=== PATIENT | male | born 1950 | race Caucasian/White ===

== ENCOUNTER 2021-03-29 11:22 | Emergency (ER) | payer MEDICARE, BC ==
[~2021-03-29] VITALS: Ht 172.7 cm; Wt 94.0 kg
[2021-03-29 11:24] VITALS: BP 135/92
[2021-03-29] MEDS ORDERED: ELIQ5TAB PO (11:32)
[2021-03-29] MEDS ORDERED: ASPI81CH33 PO (11:32)
[2021-03-29] MEDS ORDERED: OSTETAB2 PO (11:32)
[2021-03-29] MEDS ORDERED: SIMV20TA22 PO (11:32)
[2021-03-29] MEDS ORDERED: VITMTA PO (11:32)
[2021-03-29] MEDS ORDERED: TAMS1CAP17 PO (11:32)
[2021-03-29] MEDS ORDERED: LIDOCAINE 2% MDV 20ML VIAL SC ONE (12:25)
[2021-03-29] MEDS ORDERED: CEPH500C PO (12:38)
== END 2021-03-29 13:22 | disposition home or self-care (01) ==
LOC: M ED 11:22
DX: S60.352A Superficial foreign body of left thumb, initial encounter (principal); W26.8XXA Contact with other sharp object(s), not elsewhere classified, initial encounter; Y92.89 Other specified places as the place of occurrence of the external cause; I48.91 Unspecified atrial fibrillation; Z79.899 Other long term (current) drug therapy; Z79.82 Long term (current) use of aspirin; Z79.01 Long term (current) use of anticoagulants; F17.210 Nicotine dependence, cigarettes, uncomplicated